=== PATIENT | male | born 1975 | race African-American/Black ===

== ENCOUNTER 2017-02-03 17:25 | Emergency (ER) | payer OTHER ==
[~2017-02-03] VITALS: Ht 170.2 cm; Wt 93.0 kg
[2017-02-03] MEDS ORDERED: NAPROSYN500 MG PO (18:30)
[2017-02-03] MEDS ORDERED: FLEXERIL10 MG PO (18:30)
[2017-02-03 19:48] VITALS: BP 128/84
== END 2017-02-03 19:49 | disposition home or self-care (01) ==
LOC: EXP 17:25 → EME 17:25 → EXP 19:49
PROC: 3E0234Z Introduction of Serum, Toxoid and Vaccine into Muscle, Percutaneous Approach (ICD-10-PCS; principal; 2017-02-03)
DX: S51.012A Laceration without foreign body of left elbow, initial encounter (principal); V48.0XXA Car driver injured in noncollision transport accident in nontraffic accident, initial encounter; Z23 Encounter for immunization
CPT/HCPCS: 99281; 99283